=== PATIENT | male | born 1990 | race Hispanic/Latino ===

== ENCOUNTER 2022-07-27 17:52 | Emergency (ER) | payer OTHER ==
[~2022-07-27] VITALS: Ht 170.2 cm; Wt 80.0 kg
[2022-07-27] VITALS (8 sets, daily range): BP systolic 120–147; BP diastolic 73–86
[2022-07-27 19:44] LABS: HEMATOCRIT 42.8 % (39.0-50.0); HEMOGLOBIN 15.2 g/dl (14.0-18.0); IMMATURE GRANULOCYTES 0.3 % (0.0-5.0); MEAN CELL VOLUME 87.2 fL CALC (80.0-100.0); MEAN CORPUSCULAR HGB CONC 35.5 g/dL CAL (32.0-36.0); NEUT# 13.82 thou/uL (1.82-7.42); RED BLOOD COUNT 4.91 mill/uL (4.70-6.10); RED CELL DISTRI WIDTH 11.8 % (11.5-15.5)
[2022-07-27 19:55] LABS: ALBUMIN 4.3 g/dL (3.2-5.0); ALKALINE PHOSPHATASE 61 u/l (38-126); ANION GAP 13 (6-22 (CALC)); BILIRUBIN, TOTAL 0.5 mg/dL (0.0-1.4); BUN 14 mg/dL (9-20); BUN/CREATININE RATIO 15 (12-20 (CALC)); CARBON DIOXIDE 28 mmol/l (22-30); CHLORIDE 100 mmol/l (95-108); CREATININE 0.9 mg/dL (0.7-1.3); GFR FOR AFR.AMER. > 60 ML/MIN (>=60 (CALC)); GFR OTHER RACES > 60 ML/MIN (>=60 (CALC)); SGOT/AST 91 u/l (17-59); SODIUM 138 mmol/l (137-146); TOTAL PROTEIN 7.1 g/dL (6.3-8.2)
[2022-07-27] MEDS ORDERED: NAPROXEN500 MG PO (21:25)
== END 2022-07-27 21:42 | disposition home or self-care (01) | DRG 914 ==
LOC: ED 17:52 → EDBD 17:52 → ED 19:53
PROVIDERS: Nurse Practitioner
DX: T14.90XA Injury, unspecified, initial encounter (principal); V44.6XXA Car passenger injured in collision with heavy transport vehicle or bus in traffic accident, initial encounter; M25.512 Pain in left shoulder; R07.89 Other chest pain; M54.2 Cervicalgia
CPT/HCPCS: Q9967